=== PATIENT | male | born 1950 | race Caucasian/White ===

== ENCOUNTER 2018-11-10 15:32 | Observation (INO) | payer OTHER, MEDICARE ==
[~2018-11-10] VITALS: Ht 180.3 cm; Wt 50.5 kg
[~2018-11-10 15:32] MED LIST: ACET500 PO; ALBU90OI INH; ALBUIS INH; FLUSAL5005 INH; Keflex500 MG PO; LEVOFLOXACIN750 MG PO; MOME220I INH; MUCUS RELIEF200 MG PO; OXYACE5T PO; PRED20 PO; Percocet 5-3251 EACH PO; SPIRIVA RESPIMAT4 GM INH; TRAZ100 PO; VENL75ER PO; ZOLP10 PO
[2018-11-10] MEDS ORDERED: ZOLP5 (15:46)
[2018-11-10] MEDS ORDERED: Lipitor20 MG PO (15:47)
[2018-11-10 17:04] LABS: BASOPHILS ABSOLUTE AUTO 0.04 K/mm3 (0.00-0.23); BASOPHILS PERCENT AUTO 1 % (0-2); EOSINOPHILS ABSOLUTE AUTO 0.46 K/mm3 (0.00-0.68); EOSINOPHILS PERCENT AUTO 6 % (0-6); Hematocrit 31.9 % (37.0-53.0); Hemoglobin 10.6 g/dL (13.5-17.5); IMMATURE GRAN ABSOLUTE AUTO 0.02 K/mm3 (0.00-0.10); IMMATURE GRAN PERCENT AUTO 0 % (0-1); LYMPHOCYTES ABSOLUTE AUTO 1.76 K/mm3 (0.84-5.20); LYMPHOCYTES PERCENT AUTO 21 % (21-46); MONOCYTES ABSOLUTE AUTO 0.52 K/mm3 (0.16-1.47); MONOCYTES PERCENT AUTO 6 % (4-13); Mean Corpuscular HGB 34.5 pg (26.0-34.0); Mean Corpuscular HGB Conc 33.2 g/dL (31.5-36.5); Mean Corpuscular Volume 104 fL (80-100); Mean Platelet Volume 9.3 fL (9.1-12.4); NEUTROPHILS ABSOLUTE AUTO 5.59 K/mm3 (1.96-9.15); NEUTROPHILS PERCENT AUTO 67 % (41-73); Platelet Count 258 K/mm3 (150-400); RDW Coefficient Variation 13.7 % (11.7-14.2); RDW Standard Deviation 51.9 fL (35.1-46.3); Red Blood Cell Count 3.07 M/mm3 (4.30-5.90); White Blood Cell Count 8.39 K/mm3 (4.00-11.30)
[2018-11-10] MEDS ORDERED: BENZ100A PO (20:07)
[2018-11-10] MEDS ORDERED: Loratadine10 MG PO (20:08)
[2018-11-10] MEDS ORDERED: VITAMIN B-121000 MC1 SL (20:08)
[2018-11-10] MEDS ORDERED: MOME220I INH (20:09)
[2018-11-10] MEDS ORDERED: MONT10T PO (20:10)
[2018-11-10] MEDS ORDERED: Ibuprofen Ib200 MG PO (20:15)
[2018-11-10] MEDS ORDERED: THERA1 EACH PO (20:16)
[2018-11-10] MEDS ORDERED: ACET500 PO (22:48)
[2018-11-10 23:00] LABS: Hematocrit 32.3 % (37.0-53.0); Hemoglobin 10.6 g/dL (13.5-17.5)
[2018-11-11 04:39] LABS: BASOPHILS ABSOLUTE AUTO 0.04 K/mm3 (0.00-0.23); BASOPHILS PERCENT AUTO 1 % (0-2); EOSINOPHILS ABSOLUTE AUTO 0.69 K/mm3 (0.00-0.68); EOSINOPHILS PERCENT AUTO 9 % (0-6); Hematocrit 31.2 % (37.0-53.0); Hemoglobin 10.4 g/dL (13.5-17.5); IMMATURE GRAN ABSOLUTE AUTO 0.02 K/mm3 (0.00-0.10); IMMATURE GRAN PERCENT AUTO 0 % (0-1); LYMPHOCYTES ABSOLUTE AUTO 1.98 K/mm3 (0.84-5.20); LYMPHOCYTES PERCENT AUTO 26 % (21-46); MONOCYTES ABSOLUTE AUTO 0.46 K/mm3 (0.16-1.47); MONOCYTES PERCENT AUTO 6 % (4-13); Mean Corpuscular HGB 34.2 pg (26.0-34.0); Mean Corpuscular HGB Conc 33.3 g/dL (31.5-36.5); Mean Corpuscular Volume 103 fL (80-100); Mean Platelet Volume 9.2 fL (9.1-12.4); NEUTROPHILS ABSOLUTE AUTO 4.56 K/mm3 (1.96-9.15); NEUTROPHILS PERCENT AUTO 59 % (41-73); Platelet Count 258 K/mm3 (150-400); RDW Coefficient Variation 13.6 % (11.7-14.2); RDW Standard Deviation 50.5 fL (35.1-46.3); Red Blood Cell Count 3.04 M/mm3 (4.30-5.90); White Blood Cell Count 7.75 K/mm3 (4.00-11.30)
[2018-11-11 04:58] LABS: Percent Saturation 31.9 % (20.0-50.0)
[2018-11-11 05:04] LABS: Anion Gap 3 mmol/L (6-16); Blood Urea Nitrogen 9 mg/dL (8-24); Bun/Creatinine Ratio 13.2 (12.0-20.0); CO2, Blood 31 mmol/L (21-32); Calcium, Blood 8.4 mg/dL (8.5-10.1); Chloride, Blood 107 mmol/L (98-108); Creatinine, Blood 0.68 mg/dL (0.60-1.20); Glomerular Filtration Rate >60 (60-); Glucose, Blood 79 mg/dL (70-99); Potassium, Blood 4.1 mmol/L (3.5-5.5); Sodium, Blood 141 mmol/L (136-145)
--- NOTE | 2018-11-11 12:15 | NUR ---
PT OUT TO OR FOR EGD
--- NOTE | 2018-11-11 12:24 | NUR ---
BROUGHT TO UNIT ADMISSION TO UNIT STARTED. VSS SOB WITH ACTIVITY.
--- NOTE | 2018-11-11 13:22 | NUR ---
11/11/[address] HERE TO PROVIDE ANESTHESIA CARE, PLEASE SEE RECORD FOR DETAILS. History, Chart, Medications and Allergies reviewed before start of procedure. PATIENT CONFIRMS NPO STATUS AND AGREES WITH SCHEDULED PROCEDURE. MONITOR INTACT WITH CONTINUOUS PULSE OXIMETRY AND INTERMITTENT BP. O2 VIA N/C INTACT THROUGHOUT SEDATION/PROCEDURE VIA POM AT 10 L. Bite Block Placed IMMEDIATELY PRESEDATION.
--- NOTE | 2018-11-11 15:27 | NUR ---
SUMMARY PT IS A/O X4, PLEASANT AFFECT. SBA TO BR. H&H 10..2. NPO X ICE/MEDS @ ONSET OF SHIFT, THEN NPO FOR EGD WITH DR JOHNSON APPROX 1300 TODAY. [facility] HAND REPORT NO ACTIVE BLEEDING. DR GARCIA ORDERS FOR COLONOSCOPY TOMORROW. PT MAY HAVE CL DIET, WILL START BOWEL PREP @ 1999. MAY HAVE CL BF IN AM THEN NPO FOR PROCEDURE. PT STATE REASON FOR HOSP BLOOD IN STOOL PAST 2 DAYS @ HOME HOWEVER HAS HAD NO BLOODY STOOL SO FAR TODAY.
--- NOTE | 2018-11-11 23:17 | NUR ---
1999 PT STARTED ON BOWEL PREP WITH GO-LYTE WITH BSC PLACED AT BEDSIDE.
--- NOTE | 2018-11-12 04:27 | NUR ---
SHIFT SUMMARY: 68 Y/O MALE RESTED COMFORTABLY IN BED ALL SHIFT, PT PASSING LARGE AMOUNTS LIQUID RED FLUID AND STOOL THIS SHIFT AFTER STARTING BOWEL PREP (GO LYTE 2000ML) FOR TENTATIVE COLONOSCOPY TODAY. PT UTILIZED BSC ALL NIGHT, DENIES PAIN OR NAUSEA, HAPPY AND COOPERATIVE, BED LOW POSITION, CALL LIGHT AT SIDE.
--- NOTE | 2018-11-12 13:45 | NUR ---
MULTIPLE WATERY BROWN BM'S SINCE THIS A.M. APPROACHING CLEAR WITH SOME SEDIMENT. TOLERATING PREP WELL.
--- NOTE | 2018-11-12 16:31 | NUR ---
Ambulatory in RM 310 FROM TO [facility] Patient states colon prep results clear. History, Chart, Medications and Allergies reviewed before start of procedure.Lungs clear T/O to Auscultation. DIMINISHED, COPD Patient confirms NPO status and agrees with scheduled surgery. Pre-Op teaching done. Pt verbalizes understanding.
--- NOTE | 2018-11-12 16:40 | NUR ---
TRANSPORTED TO COLONOSCOPY IN NO ACUTE DISTRESS. ACCOMPANIED BY JEANA OROZCO VIA STRETCHER.
--- NOTE | 2018-11-12 17:05 | NUR ---
11/12/18 1705 Eddie Moore 3-LEAD EKG REVIEWED WITH PHYSICIAN PRIOR TO START OF PROCEDURE.PATIENT CONFIRMS NPO STATUS AND AGREES WITH SCHEDULED PROCEDURE.History, Chart, Medications and Allergies reviewed before start of procedure. MONITOR INTACT WITH CONTINUOUS PULSE OXIMETRY AND INTERMITTENT BP. O2 VIA N/C INTACT THROUGHOUT SEDATION/PROCEDURE.
--- NOTE | 2018-11-12 18:49 | NUR ---
SHIFT SUMMARY OX4; INDEPENDENT; COMPLETED COLONOSCOPY THIS PM. NOW REGULAR DIET. NO MASS FOUND ON COLONOSCOPY PER ENDO RN. GARDUNO.
--- NOTE | 2018-11-13 04:24 | NUR ---
SHIFT SUMMARY: 68 Y/O MALE RESTED COMFORTABLY IN BED, DENIES PAIN OR NAUSEA, ABLE AMBULATE BATHROOM AND BACK INDEPENDENTLY, TOLERATED EATING DINNER MEAL, NO LOOSE STOOLS NOTED, POSSIBLE DISCHARGE HOME TODAY, BED LOW POSITION, CALL LIGHT AT SIDE.
[2018-11-13] MEDS ORDERED: PANT40 (10:48)
--- NOTE | 2018-11-13 11:23 | NUR ---
SHIFT SUMMARY MELISSA HAD PIV REMOVED, PAPERWORK GONE OVER, MEDS FAXED TO [facility] AND TO [facility] FOR PROTONIX. ENCOURAGED HIGH FIBER DIET AND DRINKING LOTS OF WATER TO AVOID CONSTIPATION. DENIED PAIN, VSS. NO BM THIS SHIFT. LEFT VIA WC WITH TO GO HOME
== END 2018-11-13 11:24 | disposition home or self-care (01) ==
LOC: ER 15:32 → MEDS 15:33 → ER 17:00 → MEDS 17:00
PROVIDERS: Emergency Medicine; Student in an Organized Health Care Education/Training Program; ADMIT Internal Medicine
PROC: 0DBH8ZZ Excision of Cecum, Via Natural or Artificial Opening Endoscopic (ICD-10-PCS; principal; 2018-11-12 18:00)
PROC: 0DBL8ZZ Excision of Transverse Colon, Via Natural or Artificial Opening Endoscopic (ICD-10-PCS; principal; 2018-11-12 18:00)
PROC: 0DB78ZX Excision of Stomach, Pylorus, Via Natural or Artificial Opening Endoscopic, Diagnostic (ICD-10-PCS; principal; 2018-11-12 18:00)
PROC: 0DB48ZX Excision of Esophagogastric Junction, Via Natural or Artificial Opening Endoscopic, Diagnostic (ICD-10-PCS; principal; 2018-11-12 18:00)
DX: D12.3 Benign neoplasm of transverse colon (principal); K63.5 Polyp of colon; D50.0 Iron deficiency anemia secondary to blood loss (chronic); K64.8 Other hemorrhoids; K57.31 Diverticulosis of large intestine without perforation or abscess with bleeding; K29.40 Chronic atrophic gastritis without bleeding; J44.9 Chronic obstructive pulmonary disease, unspecified; F32.9 Major depressive disorder, single episode, unspecified; Z88.8 Allergy status to other drugs, medicaments and biological substances; Z79.899 Other long term (current) drug therapy
CPT/HCPCS: 36415; 80048; 82728; 83540; 83550; 84484; 85014; 85018; 85025; 86850; 86900; 86901; 88305; 88342; 93005; 93010; 94640; 94760; 96374; 96376; 99285-25; C9113; G0378; J2704; J7120